=== PATIENT | male | born 1960 | race Caucasian/White ===

== ENCOUNTER 2024-05-26 11:33 | Day surgery (SDC) | payer MEDICARE, MEDICAID, SELFPAY ==
--- NOTE | 2024-05-26 11:36 | W.ANESPRE ---
General Info Date of Service Date Performed: 05/26/24 Height: 5 ft 8 in Weight: 72.575 kg Body Mass Index (BMI): 24.3 Surgical Procedure: Operation Date: 05/26/24 13:25 Proposed Procedure Side Surgeon p Cataract Extraction with IOL Implant Left Surya Sheikh MD Meds Allergies and Home Medications Allergies Allergy/AdvReac Type Severity Reaction Status Date / Time No Known Allergies Allergy Verified 05/26/24 12:08 Home Medication ?Medication ?Instructions ?Recorded atorvastatin 40 mg tablet 40 mg PO DAILY 05/24/24 carbamazepine 200 mg 200 mg PO BID 05/24/24 tablet,extended release,12 hr fluoxetine 40 mg capsule 40 mg PO DAILY 05/24/24 Current Visit Medications: Current Medications Generic Name Dose Route Start Last Admin Trade Name Freq PRN Reason Stop Dose Admin Acetaminophen 1,000 mg 05/26/24 06:00 Acetaminophen 500 Mg Tab PO 06/25/24 05:59 Q4H PRN PRN Balanced Salt Solution 500 ml 05/26/24 06:00 Balanced Salt Soln.-Plus 500 Ml Bag OP 06/25/24 05:59 [facility] Miscellaneous Medication 0 ml 05/26/24 06:00 Prednisolone 1%, Moxifloxacin 0.5%, Bromfenac 0.09% 5.6ml Btl OS 06/25/24 05:59 DIRECTED [facility] Miscellaneous Medication 0 ml 05/26/24 06:00 Tropicam./Phenyleph. (1/2.5%) 5 Ml Btl OS 06/25/24 05:59 DIRECTED [facility]ERO Tetracaine HCl 0 ml 05/26/24 06:00 Tetracaine 0.5% 4 Ml Btl OS 06/25/24 05:59 DIRECTED [facility] PFSH Active Problems Active Problems: Problem Status Onset Code Total, mature age-related cataract Acute H25.89 Posterior subcapsular age-related cataract of left eye Acute H25.042 Cortical age-related cataract, left eye Acute H25.012 Nuclear age-related cataract, left eye Acute H25.12 Medical History Medical History Illiterate cannot read or write, but is able to sign his name for consents Mixed hyperlipidemia Depression Cognitive impairment Seizure disorder Last seizure 6 years-medically mamanged per brother. Follows up in [place] 2x a year Tobacco Smoking/Tobacco Use Status: Former Tobacco Use Alcohol Alcohol Intake: former Substance Use Substance use: Never Substance use type: does not use Vital Signs and Lab Results Vital Signs Most Recent Vital Signs in EMR: Temp Pulse Resp BP Pulse Ox 36.1 C L 58 L 16 127/77 99 05/26/24 11:38 05/26/24 11:38 05/26/24 11:38 05/26/24 11:38 05/26/24 11:38 Lab Results Blood Type / Crossmatch: No Data to Display Complete Blood Count: No Data to Display Complete Metabolic Panel: No Data to Display Liver Function Panel: No Data to Display Coagulation Panel: No Data to Display Cardiac Panel: No Data to Display Arterial Blood Gas: No Data to Display Venous Blood Gas: No Data to Display Pancreas Panel: No Data to Display Thyroid Panel: No Data to Display Infectious Disease: No Data to Display Blood Cultures: No Data to Display Toxicology Panel: No Data to Display Anesthesia Assessment and Plan Anesthesia History Personal History: No History of Anesthesia Complications Family History: No Family History of Anesthesia Complications Exercise Tolerance Exercise Tolerance: Metabolic Equivalents>4 Cardiac & Pulmonary Exam Cardiac Exam: Normal S1/S2 Heart Sounds Pulmonary Exam: Clear Bilateral Breath Sounds Implantable Cardiac Device Does patient have a Pacemaker or an ICD?: No Airway Exam Known Difficult Airway: No Mallampati Class: 4 Mouth Opening: Narrow (< 3cm) Thyromental Distance: Less than 3 cm Neck Range of Motion: Full ROM and Limited ROM Neck Circumference: Normal Teeth Condition: Edentulous ASA Classification ASA Score: ASA 2 Emergency Case?: No NPO Status NPO Status: NPO Clears >2 hours, Solids >8 hours Anesthesia Plan Resuscitation Status: Full Code Anesthesia Technique: MAC Anesthesia Airway Planned: Natural Airway Monitors Used: Standard Monitors Preoperative Comments:: 63 yo male for cataract removal. no MKO Sig PMHx: sz, depression, former smoker,
[2024-05-26 11:38] VITALS: BP 127/77; PULSE 58; RESP 16; TEMP 36.1; O2SAT 99
[2024-05-26] MEDS: Tropicam./Phenyleph. (1/2.5%) 5 ML BTL OS ×3 (11:48→12:03)
[2024-05-26 12:11] VITALS: BMI 24.3
[2024-05-26] MEDS: Lidocaine 1% Pres-Free 5 ML VIAL (12:29)
[2024-05-26] MEDS: Duovisc Viscoelastic System EACH 1 EACH (12:29)
[2024-05-26] MEDS: Povidone-Iodine Ophth 30 ML BTL (12:33)
[2024-05-26] MEDS: Trypan Blue 0.06% 0.5 ML SYR (12:34)
[2024-05-26] MEDS: Balanced Salt Soln.-PLUS 500 ML BAG OP (12:37)
[2024-05-26] MEDS: Prednisolone 1%, Moxifloxacin 0.5%, Bromfenac 0.09% 5.6ML BTL OS (12:37)
[2024-05-26] MEDS: Tetracaine 0.5% 4 ML BTL OS (12:38)
--- NOTE | 2024-05-26 13:13 | W.PM.DSUDISC ---
Date of service: 05/26/24 Time of Service: 13:13 Discharge Plan Disposition Patient Disposition: Home Discharge Details Attending Provider: Surya Sheikh Primary Care Provider: Unknown,Unknown Home Meds and New Rx's Prescriptions: No Action atorvastatin 40 mg tablet 40 mg PO DAILY Patient Comments: TAKE 1 TABLET BY MOUTH EVERY DAY carbamazepine 200 mg tablet extended release 12 hr 200 mg PO BID Patient Comments: TAKE 1 TABLET BY MOUTH TWICE A DAY fluoxetine 40 mg capsule 40 mg PO DAILY Patient Comments: TAKE 1 CAPSULE BY MOUTH EVERY DAY Discharge Instructions Stand Alone Forms: [facility] Post-Op Cataract, Jc Rooney ([facility]) Discharge Orders Discharge Orders: Discharge Order (Routine); Ordered 05/26/24 Ordered By: Surya Sheikh DS: Diagnosis Discharge Diagnosis (1) Total, mature age-related cataract: Status: Resolved (2) Posterior subcapsular age-related cataract of left eye: Status: Resolved (3) Cortical age-related cataract, left eye: Status: Resolved (4) Nuclear age-related cataract, left eye: Status: Resolved
--- NOTE | 2024-05-26 13:15 | ROE_ITS ---
Date of service: 05/26/24 Time of Service: 13:15 Operative Note Operative Note DATE OF PROCEDURE: 05/26/24 PRE-OP DIAGNOSIS: Mature white cataract, left eye POST-OP DIAGNOSIS: same PROCEDURE: Cataract extraction using phacoemulsification with intraocular lens implant, left eye SURGEON: Surya Sheikh ANESTHESIA TYPE: Local By Surgeon and MAC Refer to Anesthesia Record PATHOLOGY: none sent COMPLICATIONS: None Patient was transported to: same day Patient's condition: stable Implants: Joo Clareon [id number] Indications: Progressive decreased vision due to cataract, left eye Procedure Description: CATARACT SURGERY OPERATIVE REPORT PREOPERATIVE DIAGNOSIS: Mature white cataract, left eye POSTOPERATIVE DIAGNOSIS: Same OPERATION: Cataract extraction using phacoemulsification with posterior chamber intraocular lens implant, left eye. IOL: IOL Telephone Services Sales Representative/Model: Joo Clareon [id number] IOL Power: + 21.5 diopters IOL Serial Number: [id number] Optic Diameter: 6.0mm Haptic/Overall Diameter: 13.0mm PHACO INFO: JooDiabetes [employer]urion Vision System with OZil and Active Fluidics Cumulative Dispersed Energy (CDE): 18.3 seconds SURGEON: Surya Sheikh MD, MARAH ANESTHESIA: Monitored Anesthesia Care (MAC), with local sub-tenon's anesthetic infiltration COMPLICATIONS: None SPECIMENS: None INDICATIONS FOR PROCEDURE: The patient is a 63-year-old male with history of diminished visual acuity in his left eye secondary to the development of significant cataract. He is noted to have a mature white cataract in the left eye with hand motions vision. The option of cataract surgery was offered to the patient and he wished to proceed. See office notes for detailed information. PROCEDURE: The correct surgical eye was identified and marked as the left eye and the pupil was dilated in the preoperative area using mydriatics and cycloplegics. The dilated pupil size was 7.0 mm. The patient elected to proceed without oral sedation. The patient was brought to the operating room where cardiopulmonary monitoring was instituted and surgical time-out was performed, confirming the correct operative eye and IOL power. Topical anesthesia was administered and ophthalmic povidone-iodine 5% was instilled into the conjunctival fornices. The sayra-ocular area was prepped with Betadine 10% solution and draped in the usual sterile fashion for intraocular surgery, including an aperture drape. A Tegaderm transparent film dressing was cut in half and used to cover the lashes and lid margins. Care was taken to sequester the lashes and lid margins under the Tegaderm dressing. A lid speculum was placed between the lids of the operative eye and the Joo LuxOR Revalia operating microscope was maneuvered into position. Ash scissors were then used to make a conjunctival buttonhole approximately 6mm posterior to the limbus in the inferonasal quadrant. Blunt dissection was carried out to expose bare sclera, and a blunt-tipped sub-tenon?s anesthesia cannula was introduced and passed posteriorly along the globe where non- preserved plain lidocaine was injected into posterior sub-Tenon?s space. A sideport knife was used to make a paracentesis port. VisionBlue was injected into the anterior chamber and allowed to sit for 30 seconds. Intraocular phenylephrine/lidocaine was injected into the anterior chamber. The anterior chamber was then filled with viscoelastic. Viscoat was used initially to flatten the anterior capsule and pressurized the anterior chamber. A keratome knife was used construct a two-plane clear corneal tunnel extending 2.0mm into clear cornea. A flap was raised on the anterior capsule and capsulorhexis forceps were used to complete a continuous curvilinear capsulorhexis of 4.0 mm. The capsulorrhexis was initiated at the 2 o'clock position and continued in a clockwise fashion. At the 6 o'clock position there were fibrotic bands that prevented the capsulorrhexis from continued tearing. A cystotome was used to try to alysia the fibrotic bands but was unsuccessful. Mi croscissors were then used to cut the fibrotic bands. The cystotome was then used to make a alysia in the capsule at the 2 o'clock position and a continuous curvilinear capsulorhexis was continued in a counterclockwise fashion, until the 6 o'clock position, where some fibrotic bands still remained. These were amputated with the microscissors. Balanced salt solution was then used to perform cortical cleaving hydrodissection and nuclear hydrodelineation until the lens could be freely rotated within the capsular bag. The lens nucleus was then disassembled and removed within the capsular bag and iris plane using phacoemulsification. Residual cortical material was removed using the irrigation/aspiration handpiece. The posterior capsule was carefully polished to remove as much residual lens epithelial cells as safely possible. For some residual calcific plaque on the underside of the anterior capsule at the 6 o'clock position which could not be removed with aspiration or forceps. The capsular bag was then inflated and the anterior chamber deepened with viscoelastic. The lens implant described above was inserted into the capsular bag using the Joo Autonome Injector. A Kuglen hook was used to dial the IOL into position. Microscissors were used to make a alysia in the anterior capsule superiorly, and capsulorrhexis forceps were used to enlarge the capsulorrhexis superiorly and nasally. Residual viscoelastic was then removed first from posterior to the IOL, then from the anterior chamber using the I/A handpiece. The lens implant was noted to center nicely within the capsular bag. The incisions were stromally hydrated, and the anterior chamber was reformed using BSS. Then 0.5cc of moxifloxacin 1.0mg/ml were injected into the capsular bag and anterior chamber. The inci sions were checked with a Weck spear and found to be secure. Several drops of ophthalmic povidone-iodine 5% were then applied to the eye followed by two drops of combination steroid/NSAID/antibiotic solution. The drapes were removed and a clear plastic protective eye shield was placed over the eye. The patient was then returned to Same Day Surgery in stable condition.
[2024-05-26 13:16] VITALS: BP 162/83; PULSE 55; RESP 16; TEMP 36.3; O2SAT 99
--- NOTE | 2024-05-26 13:22 | W.ANESPOSTOP ---
Postoperative Evaluation Date, Time and Location Date Performed: 05/26/24 Time Performed: 13:22 Patient Location: Day Surgery Unit Vital Signs Most Recent Imported Vital Signs: Most Recent Vital Signs Temp Pulse Resp BP Pulse Ox 36.3 C L 55 L 16 162/83 H 99 05/26/24 13:16 05/26/24 13:16 05/26/24 13:16 05/26/24 13:16 05/26/24 13:16 Pain Score Most Recent Pain Score: Most Recent Pain Score Pain Level 0 05/26/24 13:16 Assessment Mental Status: Awake (Alert & Oriented to Patient Baseline) Airway and Respiratory Function: Patent airway with normal (patient baseline) respiratory exam Cardiovascular Function: Hemodynamically Stable Hydration Status: Adequately Hydrated Nausea & Vomiting: No Nausea or Vomiting Pain: Pt. Denies Any Pain Peripheral Nerve Block: Patient did not receive a nerve block
== END 2024-05-26 13:35 | disposition home or self-care (01) ==
PROVIDERS: Visit Provider Ophthalmology
PROC: (CPT 66984; principal; 2024-05-26 13:15)
DX: H25.042 Posterior subcapsular polar age-related cataract, left eye (principal); H25.89 Other age-related cataract; H25.012 Cortical age-related cataract, left eye; H25.12 Age-related nuclear cataract, left eye
CPT/HCPCS: 66984; 00123; V2632; J2003

== ENCOUNTER 2024-06-02 07:24 | Day surgery (SDC) | payer MEDICARE, MEDICAID, SELFPAY ==
[2024-06-02 09:23] VITALS: BP 160/77; PULSE 52; RESP 15; TEMP 36.5; O2SAT 100
[2024-06-02] MEDS: Tropicam./Phenyleph. (1/2.5%) 5 ML BTL OD ×3 (09:29→09:43)
--- NOTE | 2024-06-02 10:10 | W.ANESPRE ---
General Info Date of Service Date Performed: 06/02/24 Height: 5 ft 8 in Weight: 65.7 kg Body Mass Index (BMI): 22.0 Surgical Procedure: Operation Date: 06/02/24 10:40 Proposed Procedure Side Surgeon p Cataract Extraction with IOL Implant Right Surya Sheikh MD Meds Allergies and Home Medications Allergies Allergy/AdvReac Type Severity Reaction Status Date / Time No Known Allergies Allergy Verified 06/02/24 09:21 Home Medication ?Medication ?Instructions ?Recorded atorvastatin 40 mg tablet 40 mg PO DAILY 05/24/24 carbamazepine 200 mg 200 mg PO BID 05/24/24 tablet,extended release,12 hr fluoxetine 40 mg capsule 40 mg PO DAILY 05/24/24 Current Visit Medications: Current Medications Generic Name Dose Route Start Last Admin Trade Name Freq PRN Reason Stop Dose Admin Acetaminophen 1,000 mg 06/02/24 06:00 Acetaminophen 500 Mg Tab PO 07/02/24 05:59 Q4H PRN PRN Balanced Salt Solution 500 ml 06/02/24 06:00 Balanced Salt Soln.-Plus 500 Ml Bag OP 07/02/24 05:59 DIRECTED [facility] Miscellaneous Medication 0 ml 06/02/24 06:00 Prednisolone 1%, Moxifloxacin 0.5%, Bromfenac 0.09% 5.6ml Btl OD 07/02/24 05:59 DIRECTED [facility] Miscellaneous Medication 0 ml 06/02/24 06:00 06/02/24 09:43 Tropicam./Phenyleph. (1/2.5%) 5 Ml Btl OD 07/02/24 05:59 1 drp DIRECTED [facility] Administration Tetracaine HCl 0 ml 06/02/24 06:00 Tetracaine 0.5% 4 Ml Btl OD 07/02/24 05:59 DIRECTED [facility] PFSH Active Problems Active Problems: Problem Status Onset Code Total, mature age-related cataract Resolved H25.89 Posterior subcapsular age-related cataract of left eye Resolved H25.042 Cortical age-related cataract, left eye Resolved H25.012 Nuclear age-related cataract, left eye Resolved H25.12 Medical History Medical History Illiterate cannot read or write, but is able to sign his name for consents Mixed hyperlipidemia Depression Cognitive impairment Seizure disorder Last seizure 6 years-medically mamanged per brother. Follows up in [place] 2x a year Surgical History Surgical History Hx of left cataract extraction Tobacco Smoking/Tobacco Use Status: Former Tobacco Use Alcohol Alcohol Intake: former Substance Use Substance use: Never Substance use type: does not use Vital Signs and Lab Results Vital Signs Most Recent Vital Signs in EMR: Most Recent Vital Signs Temp Pulse Resp BP Pulse Ox 36.5 C 52 L 15 160/77 H 100 06/02/24 09:23 06/02/24 09:23 06/02/24 09:23 06/02/24 09:23 06/02/24 09:23 Lab Results Blood Type / Crossmatch: No Data to Display Complete Blood Count: No Data to Display Complete Metabolic Panel: No Data to Display Liver Function Panel: No Data to Display Coagulation Panel: No Data to Display Cardiac Panel: No Data to Display Arterial Blood Gas: No Data to Display Venous Blood Gas: No Data to Display Pancreas Panel: No Data to Display Thyroid Panel: No Data to Display Infectious Disease: No Data to Display Blood Cultures: No Data to Display Toxicology Panel: No Data to Display Anesthesia Assessment and Plan Anesthesia History Personal History: No History of Anesthesia Complications Family History: No Family History of Anesthesia Complications Exercise Tolerance Exercise Tolerance: Metabolic Equivalents>4 Cardiac & Pulmonary Exam Cardiac Exam: Normal S1/S2 Heart Sounds Pulmonary Exam: Clear Bilateral Breath Sounds Implantable Cardiac Device Does patient have a Pacemaker or an ICD?: No Airway Exam Known Difficult Airway: No Mallampati Class: 4 Mouth Opening: Narrow (< 3cm) Thyromental Distance: Less than 3 cm Neck Range of Motion: Full ROM and Limited ROM Neck Circumference: Normal Teeth Condition: Edentulous ASA Classification ASA Score: ASA 2 Emergency Case?: No NPO Status NPO Status: NPO Clears >2 hours, Solids >8 hours Anesthesia Plan Resuscitation Status: Full Code Anesthesia Technique: MAC Anesthesia Airway Planned: Natural Airway Monitors Used: Standard Monitors
[2024-06-02 10:43] VITALS: BMI 22.0
[2024-06-02] MEDS: Balanced Salt Soln.-PLUS 500 ML BAG OP (10:43)
[2024-06-02] MEDS: Tetracaine 0.5% 4 ML BTL OD (10:43)
[2024-06-02] MEDS: Prednisolone 1%, Moxifloxacin 0.5%, Bromfenac 0.09% 5.6ML BTL OD (10:54)
[2024-06-02] MEDS: Duovisc Viscoelastic System EACH 1 EACH (10:57)
[2024-06-02] MEDS: Lidocaine 1% Pres-Free 5 ML VIAL (10:58)
[2024-06-02] MEDS: Povidone-Iodine Ophth 30 ML BTL (11:00)
--- NOTE | 2024-06-02 11:12 | W.PM.DSUDISC ---
Date of service: 06/02/24 Time of Service: 11:12 Discharge Plan Disposition Patient Disposition: Home Discharge Details Attending Provider: Surya Sheikh Primary Care Provider: Unknown,Unknown Home Meds and New Rx's Prescriptions: No Action atorvastatin 40 mg tablet 40 mg PO DAILY Patient Comments: TAKE 1 TABLET BY MOUTH EVERY DAY carbamazepine 200 mg tablet extended release 12 hr 200 mg PO BID Patient Comments: TAKE 1 TABLET BY MOUTH TWICE A DAY fluoxetine 40 mg capsule 40 mg PO DAILY Patient Comments: TAKE 1 CAPSULE BY MOUTH EVERY DAY Discharge Instructions Stand Alone Forms: [facility] Post-Op Cataract, Jc Rooney ([facility]) Discharge Orders Discharge Orders: Discharge Order (Routine); Ordered 06/02/24 Ordered By: Surya Sheikh DS: Diagnosis Discharge Diagnosis (1) Nuclear age-related cataract, right eye: Status: Resolved (2) Cortical age-related cataract, right eye: Status: Resolved
[2024-06-02 11:13] VITALS: BP 171/89; PULSE 52; RESP 16; TEMP 35.9; O2SAT 99
--- NOTE | 2024-06-02 11:13 | ROE_ITS ---
Date of service: 06/02/24 Time of Service: 11:14 Operative Note Operative Note DATE OF PROCEDURE: 06/02/24 PRE-OP DIAGNOSIS: Nuclear/cortical cataract, right eye POST-OP DIAGNOSIS: same PROCEDURE: Cataract extraction using phacoemulsification with intraocular lens implant, right eye SURGEON: Surya Sheikh ANESTHESIA TYPE: Local By Surgeon and MAC Refer to Anesthesia Record ESTIMATED BLOOD LOSS: 0 PATHOLOGY: none sent COMPLICATIONS: None Patient was transported to: same day Patient's condition: stable Implants: Joo Clareon [id number] Indications: Progressive decreased vision due to cataract, right eye Procedure Description: CATARACT SURGERY OPERATIVE REPORT PREOPERATIVE DIAGNOSIS: Nuclear/cortical cataract, right eye POSTOPERATIVE DIAGNOSIS: Same OPERATION: Cataract extraction using phacoemulsification with posterior chamber intraocular lens implant, right eye. IOL: IOL Still Worker Helper/Model: Joo Clareon [id number] IOL Power: + 22.5 diopters IOL Serial Number: [id number] Optic Diameter: 6.0mm Haptic/Overall Diameter: 13.0mm PHACO INFO: Joo[employer]urion Vision System with OZil and Active Fluidics Cumulative Dispersed Energy (CDE): 3.84 seconds SURGEON: Surya Sheikh MD, MARAH ANESTHESIA: Monitored Anesthesia Care (MAC), with local sub-tenon's anesthetic infiltration COMPLICATIONS: None SPECIMENS: None INDICATIONS FOR PROCEDURE: The patient is a 63-year-old male with history of severely diminished visual acuity in both eyes, left eye worse than right with the development of significant bilateral cataracts. He has already undergone cataract surgery in the left eye and is doing well postoperatively. He now presents for cataract surgery in the right eye. See office notes for detailed information. PROCEDURE: The correct surgical eye was identified and marked as the right eye and the pupil was dilated in the preoperative area using mydriatics and cycloplegics. The dilated pupil size was 6.0 mm. The patient elected to proceed without oral sedation. The patient was brought to the operating room where cardiopulmonary monitoring was instituted and surgical time-out was performed, confirming the correct operative eye and IOL power. Topical anesthesia was administered and ophthalmic povidone-iodine 5% was instilled into the conjunctival fornices. The sayra-ocular area was prepped with Betadine 10% solution and draped in the usual sterile fashion for intraocular surgery, including an aperture drape. A Tegaderm transparent film dressing was cut in half and used to cover the lashes and lid margins. Care was taken to sequester the lashes and lid margins under the Tegaderm dressing. A lid speculum was placed between the lids of the operative eye and the Joo LuxOR Revalia operating microscope was maneuvered into position. Ash scissors were then used to make a conjunctival buttonhole approximately 6mm posterior to the limbus in the inferonasal quadrant. Blunt dissection was carried out to expose bare sclera, and a blunt-tipped sub-tenon?s anesthesia cannula was introduced and passed posteriorly along the globe where non- preserved plain lidocaine was injected into posterior sub-Tenon?s space. A sideport knife was used to make a paracentesis port. Intraocular phenylephrine/lidocaine was injected into the anterior chamber. The anterior chamber was then filled with viscoelastic. A keratome knife was used to construct a two--plane clear corneal tunnel extending 2.0mm into clear cornea. A flap was raised on the anterior capsule and capsulorhexis forceps were used to complete a continuous curvilinear capsulorhexis of 5.0 mm. Balanced salt solution was then used to perform cortical cleaving hydrodissection and nuclear hydrodelineation until the lens could be freely rotated within the capsular bag. The lens nucleus was then disassembled and removed within the capsular bag and iris plane using phacoemulsification. Residual cortical material was removed using the I/A handpiece. The posterior capsule was carefully polished to remove as much residual lens epithelial cells as safely possible. The capsular bag was then inflated and the anterior chamber deepened with cohesive viscoelastic. The lens implant described above was inserted into the capsular bag using the Joo Autonome Injector. A Kuglen hook was used to dial the IOL into position. Residual viscoelastic was then removed first from posterior to the IOL, then from the anterior chamber using the I/A handpiece. The lens implant was noted to center nicely within the capsular bag. The incisions were stromally hydrated, and the anterior chamber was reformed using BSS. Then 0.5cc of moxifloxacin 1.0mg/ml were injected into the capsular bag and anterior chamber. The incisions were checked with a Weck spear and found to be secure. Several drops of ophthalmic povidone-iodine 5% were then applied to the eye followed by two drops of combination steroid/NSAID/antibiotic solution. The drapes were removed and a clear plastic protective eye shield was placed over the eye. The patient was then returned to Same Day Surgery in stable condition.
--- NOTE | 2024-06-02 11:45 | W.ANESPOSTOP ---
Postoperative Evaluation Date, Time and Location Date Performed: 06/02/24 Time Performed: 11:20 Patient Location: Day Surgery Unit Vital Signs Most Recent Imported Vital Signs: Most Recent Vital Signs Temp Pulse Resp BP Pulse Ox 35.9 C L 52 L 16 171/89 H 99 06/02/24 11:13 06/02/24 11:13 06/02/24 11:13 06/02/24 11:13 06/02/24 11:13 Pain Score Most Recent Pain Score: Most Recent Pain Score Pain Level 0 06/02/24 11:13 Assessment Mental Status: Awake (Alert & Oriented to Patient Baseline) Airway and Respiratory Function: Patent airway with normal (patient baseline) respiratory exam Cardiovascular Function: Hemodynamically Stable Hydration Status: Adequately Hydrated Nausea & Vomiting: No Nausea or Vomiting Pain: Pt. Denies Any Pain Peripheral Nerve Block: Patient did not receive a nerve block
== END 2024-06-02 11:36 | disposition home or self-care (01) ==
LOC: SUR 07:25
PROVIDERS: Visit Provider Ophthalmology
PROC: (CPT 66984; principal; 2024-06-02 10:30)
DX: H25.11 Age-related nuclear cataract, right eye (principal); H25.011 Cortical age-related cataract, right eye; Z98.42 Cataract extraction status, left eye
CPT/HCPCS: 66984; 00123; V2632; J2003